=== PATIENT | male | born 1955 | race Caucasian/White ===

== ENCOUNTER 2017-07-19 21:19 | Emergency (ER) | payer OTHER ==
[~2017-07-19] VITALS: Ht 185.4 cm; Wt 100.0 kg
[2017-07-19] MEDS ORDERED: ALLO100T64 PO (21:46)
[2017-07-19] MEDS ORDERED: LISI40TA PO (21:46)
[2017-07-19 21:52] LABS: HEMATOCRIT 42.2 % (39.2-51.8); HEMOGLOBIN 14.1 g/dL (13.7-18.0); WHITE BLOOD COUNT 5.4 x10^3/uL (3.4-10)
[2017-07-19 22:00] LABS: BLOOD UREA NITROGEN 12 mg/dL (7-18)
[2017-07-19 22:49] VITALS: BP 105/63
[2017-07-20] MEDS ORDERED: LORazepam 2 MG/ML, 1ML ONE (01:21)
== END 2017-07-19 22:53 | disposition home or self-care (01) ==
LOC: ED 22:50
DX: F10.129 Alcohol abuse with intoxication, unspecified (principal); F12.129 Cannabis abuse with intoxication, unspecified; R55 Syncope and collapse; I10 Essential (primary) hypertension; M10.9 Gout, unspecified
CPT/HCPCS: 36415; 80048; 80307; 82040; 85025; 93005; 99285